=== PATIENT | female | born 1980 | race Caucasian/White ===

== ENCOUNTER 2022-01-17 12:43 | Outpatient (CLI) | payer OTHER, SELFPAY ==
--- NOTE | ~2022-01-17 | US_ITS ---
EXAMINATION: US pelvic complete w TV DATE: 01/17/2022 14:10 INDICATION: Right ovarian cyst Comparison:No prior studies for comparison. TECHNIQUE: Multiple transabdominal and endovaginal sonographic images of the pelvis performed. FINDINGS: The uterus measures 9.4 x 6.2 x 7.5 cm. Uterine myometrium is somewhat heterogeneous, likel y due to underlying fibroid changes, although no discrete mass identified for measurement. The endome trial complex measures 5.5 mm. The right ovary is not visualized. Left ovary measures 3.6 x 2.8 x 1.9 cm. There is no free fluid in the pelvis. There are no abnormal masses seen on either side. IMPRESSION: 1. Mildly prominent uterus with diffusely heterogeneous echotexture, likely due to fibroid changes, a lthough no discrete mass is identified for measurement. Reviewed, dictated and finalized at location A. [employer] IMPRESSION: 1. Mildly prominent uterus with diffusely heterogeneous echotexture, likely due to fibroid changes, although no discrete mass is identified for measurement.
[2022-01-17 14:38] LABS: Basophils Percent Auto 0.3 % (0.2-1.2); Eosinophils Absolute Auto 0.2 K/mm3 (0-0.3); Eosinophils Percent Auto 1.2 % (0-4.4); Hematocrit 43.4 % (37.0-47.0); Hemoglobin 14.8 g/dL (12.0-15.0); Immature Granulocyte Absolute 0.08 K/mm3 (0.00-0.031); Immature Granulocyte Percent A 0.7 % (0-0.5); Lymphocytes Absolute Auto 3.03 K/mm3 (0.9-3.2); Lymphocytes Percent Auto 24.7 % (18.3-44.2); Mean Corpuscular HGB Conc 34.1 g/dl (32-36); Mean Corpuscular Hemoglobin 29.8 pg (26-34); Mean Corpuscular Volume 87.5 fl (80-100); Mean Platelet Volume 10.1 fl (7.4-10.4); Monocytes Absolute Auto 0.5 K/mm3 (0.1-0.6); Monocytes Percent Auto 4.4 % (2.6-8.5); Neutrophils Absolute Auto 8.4 K/mm3 (1.3-6.7); Neutrophils Percent Auto 68.7 % (45.5-73.1); Platelet Count Result 267 k/mm3 (150-375); Red Blood Count 4.96 M/mm3 (4.2-5.4); White Blood Count 12.3 K/mm3 (4.5-10.0)
[2022-01-17 14:47] LABS: Alanine Aminotransferase 26 U/L (4-35); Albumin Level 4.5 g/dL (3.5-5.1); Alkaline Phosphatase 165 U/L (38-126); Anion Gap 8 mmol/L (8-16); Aspartate Amino Transferase 38 U/L (14-36); Bilirubin,Total 0.5 mg/dL (0.2-1.3); Blood Urea Nitrogen 13 mg/dL (7-17); Calcium 9.3 mg/dL (8.4-10.2); Carbon Dioxide 28 mmol/L (22-30); Chloride 97 mmol/L (98-107); Estimated Glomerular Filt Rate > 60; Glucose 268 mg/dL (65-110); Lactate Dehydrogenase 357 U/L (313-618); Potassium 3.9 mmol/L (3.4-5.0); Sodium 133 mmol/L (137-145)
[2022-01-20 02:16] LABS: CA-125 15 U/mL (<35)
[2022-01-20 06:55] LABS: FSH 25.1 mIU/mL (***)
[2022-01-21 15:46] LABS: Testosterone Total 26 ng/dL (2-45)
[2022-01-25 16:35] LABS: Estradiol, Ultrasensitive 65 pg/mL
== END 2022-01-17 12:44 | disposition home or self-care (01) ==
PROVIDERS: Visit Provider Obstetrics & Gynecology
DX: N83.291 Other ovarian cyst, right side (principal); Z51.81 Encounter for therapeutic drug level monitoring; Z79.899 Other long term (current) drug therapy
CPT/HCPCS: 36415; 76830; 76856; 80053; 82670; 83001; 83615; 84402; 84403; 85025; 86304

== ENCOUNTER 2022-02-08 15:21 | Emergency (ER) | payer OTHER, SELFPAY ==
[2022-02-08 15:41] LABS: Basophils Percent Auto 0.3 % (0.2-1.2); Eosinophils Absolute Auto 0.1 K/mm3 (0-0.3); Eosinophils Percent Auto 1.2 % (0-4.4); Hematocrit 46.9 % (37.0-47.0); Hemoglobin 15.3 g/dL (12.0-15.0); Immature Granulocyte Absolute 0.08 K/mm3 (0.00-0.031); Immature Granulocyte Percent A 0.7 % (0-0.5); Lymphocytes Percent Auto 20.6 % (18.3-44.2); Mean Corpuscular HGB Conc 32.6 g/dl (32-36); Mean Corpuscular Hemoglobin 29.3 pg (26-34); Mean Corpuscular Volume 89.8 fl (80-100); Mean Platelet Volume 9.5 fl (7.4-10.4); Monocytes Absolute Auto 0.7 K/mm3 (0.1-0.6); Monocytes Percent Auto 5.4 % (2.6-8.5); Neutrophils Absolute Auto 8.7 K/mm3 (1.3-6.7); Neutrophils Percent Auto 71.8 % (45.5-73.1); Platelet Count Result 252 k/mm3 (150-375); Red Blood Count 5.22 M/mm3 (4.2-5.4); Red Cell Distribution Width 13.3 % (11.5-14.5); White Blood Count 12.1 K/mm3 (4.5-10.0)
[2022-02-08 15:50] LABS: Potassium 3.9 mmol/L (3.4-5.0)
[2022-02-08 15:53] LABS: Alanine Aminotransferase 22 U/L (4-35); Albumin Level 4.5 g/dL (3.5-5.1); Alkaline Phosphatase 170 U/L (38-126); Anion Gap 11 mmol/L (8-16); Aspartate Amino Transferase 30 U/L (14-36); Bilirubin,Total 0.3 mg/dL (0.2-1.3); Blood Urea Nitrogen 11 mg/dL (7-17); Calcium 9.4 mg/dL (8.4-10.2); Carbon Dioxide 28 mmol/L (22-30); Chloride 99 mmol/L (98-107); Estimated CRCL calculation 150 ml/min; Estimated Glomerular Filt Rate > 60; Glucose 224 mg/dL (65-110); Sodium 138 mmol/L (137-145)
--- NOTE | 2022-02-08 17:44 | ED.FEMALEGU ---
HPI - Female Genitourinary General Chief complaint: Vaginal Bleeding Stated complaint: vaginal bleeding Time Seen by Provider: 02/08/22 16:43 Source: patient Mode of arrival: ambulatory Limitations: no limitations History of Present Illness HPI Narrative: 41-year-old female presents today with complaints of vaginal bleeding. Patient states she was told not too long ago that she was going through menopause. Patient states last menstrual period was over a year ago. Patient started bleeding yesterday and states she is gone through 1 pad an hour every hour since about 10:00 last night. Patient denies dizziness, lightheadedness, but does endorse some pelvic crampiness. Patient states she called her OB today and was instructed to come here due to the office being closed. Related Data Home Medications Medication Instructions Recorded Confirmed albuterol sulfate 90 mcg/actuation 1 puff INHALATION Q4H PRN 01/11/22 01/11/22 aerosol inhaler levothyroxine 137 mcg capsule 137 mcg PO DAILY 01/11/22 01/11/22 paroxetine HCl 30 mg tablet 30 mg PO DAILY 01/11/22 01/11/22 quetiapine 400 mg tablet 400 mg PO BID 01/11/22 01/11/22 Allergies Allergy/AdvReac Type Severity Reaction Status Date / Time No Known Allergies Allergy Verified 01/11/22 09:11 Review of Systems Review of Systems: CONSTITUTIONAL: Denies fever, chills, or sweats. EYES: Denies visual changes, redness, or discharge. ENT: Denies rhinorrhea, congestion, sore throat, or otalgia. CARDIOVASCULAR: Denies chest pain, palpitations, or edema. RESPIRATORY: Denies cough or dyspnea. GASTROINTESTINAL: Denies abdominal pain, nausea, vomiting, or diarrhea. GENITOURINARY: Vaginal bleeding. Pelvic cramping. Denies dysuria or hematuria. SKIN: Denies rash or itching. MUSCULOSKELETAL: Denies back pain, joint pain, or myalgia. NEUROLOGIC: Denies headache, numbness, dizziness, or weakness. PSYCHIATRIC: Denies anxiety or depression. [facility] Past Medical History Medical History Anxiety Depression Hypothyroidism Surgical History Surgical History History of dilation and curettage 2010 History of endometrial ablation 2010 Family History Family History Other Acute myocardial infarction Crohn's disease Diabetes mellitus Parkinsons disease Social History Social History (Updated 01/11/22 @ 09:15 by Hetal Garcia MA) Smoking status: Current some day smoker Tobacco type: e-cigarettes/vaping Alcohol intake: current Alcohol use details: occasional Substance use: current Substance use type: marijuana Additional occupation/education comments: disable Gender identity (if verbalized by the patient): Female Sexual Orientation (if Verbalized by the Patient): Bisexual Exam Narrative: GENERAL: Well-appearing, well-nourished, and in no acute distress. HEAD: Normocephalic, atraumatic. EYES: PERRLA and EOMI. ENT: Nares clear, no rhinorrhea or epistaxis. Mucous membranes moist. Oropharynx without tonsillar hypertrophy exudate or other lesions. Bilateral TMs pearly wong nonbulging NECK: Supple. No adenopathy or masses. No carotid bruits or JVD CHEST: Clear to auscultation. No respiratory distress. No wheezes rales or rhonchi HEART: Regular rate and rhythm. No murmur heard. Normal peripheral pulses. ABDOMEN: Soft, nontender, nondistended, normal active bowel sounds. EXTREMITIES: Normal range of motion. No edema. SKIN: Warm, dry, no rash. NEURO: No focal deficits. Alert and oriented x3. PSYCH: Normal mood and affect. : General: Yes bladder normal to palpation External Female Exam: normal external appearance Speculum Exam - Vagina: normal appearance of the vagina, abnormal vaginal discharge and vaginal bleeding (small to moderate bleeding noted) Speculum Exam - Cervix: normal appearance of the cervix
[2022-02-08 17:55] VITALS: BP 114/77; PULSE 91
[2022-02-08 17:57] VITALS: BP 117/50; PULSE 95
[2022-02-08 17:59] VITALS: BP 141/84; PULSE 105
== END 2022-02-08 18:45 | disposition home or self-care (01) ==
PROVIDERS: Emergency Medicine; Emergency Provider Nurse Practitioner Family; PCP Internal Medicine
DX: N93.9 Abnormal uterine and vaginal bleeding, unspecified (principal); E03.9 Hypothyroidism, unspecified; F41.9 Anxiety disorder, unspecified; F32.A Depression, unspecified; F17.210 Nicotine dependence, cigarettes, uncomplicated
CPT/HCPCS: 36415; 80053; 85025; 99284

== ENCOUNTER 2022-03-04 14:15 | Outpatient (CLI) | payer OTHER, SELFPAY ==
--- NOTE | ~2022-03-04 | MM_ITS ---
EXAMINATION: MM screening anselmo BI w ambar HISTORY: Screening mammogram TECHNIQUE: Craniocaudal and mediolateral oblique 3-D tomosynthesis images were obtained and synthetic 2-D images were generated. CAD analysis was submitted and interpreted. COMPARISON: No prior mammogram is available for comparison at this institution. BREAST PARENCHYMAL COMPOSITION: The breasts are almost entirely fatty. FINDINGS: There is no evidence of suspicious mass, calcification, or architectural distortion to sugg est malignancy in either breast. There has been no suspicious interval change. IMPRESSION: 1. No mammographic evidence of malignancy. 2. Recommend routine screening mammography in one year. BI-RADS Category 1: Negative Reviewed, dictated and finalized at location A.
== END 2022-03-04 14:16 | disposition home or self-care (01) ==
LOC: ANHIMG 14:17
PROVIDERS: PCP Internal Medicine; Visit Provider Obstetrics & Gynecology
DX: Z12.31 Encounter for screening mammogram for malignant neoplasm of breast (principal)
CPT/HCPCS: 77063; 77067

== ENCOUNTER 2023-01-15 13:42 | Emergency (ER) | payer OTHER, SELFPAY ==
[2023-01-15 14:06] VITALS: BP 139/80; PULSE 114; RESP 19; TEMP 36.8; O2SAT 99
--- NOTE | 2023-01-15 16:28 | PC.NURSE ---
Patient ambulated out of the ED with a steady gait and no difficulty. Patient stated that she did not want to wait any longer so going to another facility.
== END 2023-01-15 17:02 | disposition left against medical advice (07) ==
PROVIDERS: PCP Internal Medicine
DX: Z53.21 Procedure and treatment not carried out due to patient leaving prior to being seen by health care provider (principal)
CPT/HCPCS: 99199